=== PATIENT | male | born 1990 | race African-American/Black ===

== ENCOUNTER 2021-05-01 09:09 | Emergency (ER) | payer OTHER ==
[2021-05-01] MEDS ORDERED: AUGMENTIN 500-1 EACH PO (10:06)
== END 2021-05-01 10:40 | disposition home or self-care (01) ==
LOC: FER 09:09
DX: J03.90 Acute tonsillitis, unspecified (principal); T63.441A Toxic effect of venom of bees, accidental (unintentional), initial encounter; F17.200 Nicotine dependence, unspecified, uncomplicated
CPT/HCPCS: 87880; J1100

== ENCOUNTER 2022-01-24 15:45 | Emergency (ER) | payer SELFPAY ==
[~2022-01-24 15:45] MED LIST: AUGMENTIN 500-1 EACH PO
[2022-01-24] MEDS ORDERED: VIBRAMYCIN100 MG PO (17:37)
== END 2022-01-24 17:45 | disposition home or self-care (01) ==
LOC: FER 15:45
DX: S31.153A Open bite of abdominal wall, right lower quadrant without penetration into peritoneal cavity, initial encounter (principal); W57.XXXA Bitten or stung by nonvenomous insect and other nonvenomous arthropods, initial encounter
CPT/HCPCS: 99281

== ENCOUNTER 2022-02-04 21:30 | Emergency (ER) | payer MEDICAID ==
[~2022-02-04] VITALS: Ht 188 cm; Wt 81.6 kg
[~2022-02-04 21:30] MED LIST changes: +VIBRAMYCIN100 MG PO
[2022-02-05 00:13] LABS: BASOPHIL 0.9 % (0-2); EOSINOPHIL 1.3 % (0-5); HCT 45.4 % (42.0-52.0); HGB 15.2 g/dl (13.2-18.0); LYMPHOCYTE 27.9 % (15-48); MCH 29.7 pg (25.0-31.0); MCHC 33.5 g/dL (32.0-36.0); MCV 88.8 fL (78.0-100.0); MONOCYTE 8.4 % (0-12); MPV 11.6 fL (6.0-9.5); NEUTROPHIL 61.3 % (41-80); NRBC 0; PLT 151 K/uL (150-400); RBC 5.11 M/uL (4.70-6.00); RDW 12.5 % (11.5-14.0); WBC 4.6 K/uL (4.0-10.5)
[2022-02-05 00:29] LABS: ALBUMIN 4.4 g/dL (3.4-5.0); BILIRUBIN - TOTAL 0.7 mg/dL (0.2-1.0); BUN/CREAT RATIO (CALC) 13.5 RATIO; CREATININE 0.96 mg/dL (0.67-1.17); POTASSIUM 4.2 mmol/L (3.5-5.1); TOTAL PROTEIN 8.4 g/dL (6.4-8.2)
[2022-02-05 00:57] LABS: CORONAVIRUS 2019 SARS-COV-2 NEGATIVE (NEGATIVE); INFLUENZA A NAA NEGATIVE (NEGATIVE)
[2022-02-05] MEDS ORDERED: ONDANSETRON ODT4 MG PO (01:00)
[2022-02-05] MEDS ORDERED: PHENERGAN25 M1 PO (01:00)
== END 2022-02-05 03:15 | disposition home or self-care (01) ==
LOC: FER 21:30
PROVIDERS: Emergency Medicine
DX: R42 Dizziness and giddiness (principal); R11.2 Nausea with vomiting, unspecified; R19.7 Diarrhea, unspecified; F17.200 Nicotine dependence, unspecified, uncomplicated; Z20.822 Contact with and (suspected) exposure to COVID-19
CPT/HCPCS: 36415; 80053; 83690; 85025; 93005; J1885; J2405; J7030; Q0169; U0002